=== PATIENT | female | born 1935 | race Native Hawaiian/Other Pacific Islander ===

== ENCOUNTER 2020-04-18 20:30 | IRF | payer MEDICARE, OTHER, SELFPAY ==
--- NOTE | ~2020-04-18 | XR_ITS ---
EXAMINATION: XR ankle LT min 3V DATE: 04/27/2020 10:38 INDICATION: Medial left ankle pain TECHNIQUE: Anteroposterior, oblique, mortise, and lateral views of the left ankle were obtained. COMPARISON: None. FINDINGS: Alignment is normal. No fracture. Joint spaces are well maintained. No ankle joint effusion. Modera te-sized plantar calcaneal spur. The soft tissues are unremarkable. IMPRESSION: 1. No osseous abnormality or left ankle joint effusion. Reviewed, dictated and finalized at location A.
[2020-04-18 20:30] VITALS: BP 144/77; PULSE 98; RESP 20; TEMP 36.5; O2SAT 95; BMI 26.8
--- NOTE | 2020-04-18 21:27 | ADMGEN ---
This patient, Jennifer Smith, was admitted to [facility] Room 223-01 at 20:30. Patient/family oriented to hospital policies and general routines including ID bracelet, bed and alarms, visiting hours, pain management, procedures, bathroom and other care routines, personal items, smoking policy, room service/diet, and visiting hours. Valuables list has been completed. Information on how to activate the Rapid Response Team has been discussed. Patient/Family are encouraged to report perceived risks to care and to ask questions if they do not understand what they are told or what they should do.
[2020-04-18 22:23] VITALS: PULSE 110; O2SAT 94
[2020-04-18 23:03] VITALS: PULSE 99; RESP 14; O2SAT 93
[2020-04-19] VITALS (16 sets, daily range): BP systolic 113–130; BP diastolic 70–82; PULSE 82–112; RESP 12–20; TEMP 36.3–36.7; O2SAT 93–99; BMI 26.8
[2020-04-19 05:12] LABS: Basophils Absolute Auto 0.1 K/mm3 (0.0-0.1); Basophils Percent Auto 1.8 % (0.2-1.2); Eosinophils Absolute Auto 0.1 K/mm3 (0-0.3); Eosinophils Percent Auto 2.3 % (0-4.4); Hematocrit 44.1 % (37.0-47.0); Hemoglobin 13.8 g/dL (12.0-15.0); Immature Granulocyte Absolute 0.02 K/mm3 (0.00-0.031); Immature Granulocyte Percent A 0.4 % (0-0.5); Lymphocytes Absolute Auto 1.64 K/mm3 (0.9-3.2); Lymphocytes Percent Auto 29.1 % (18.3-44.2); Mean Corpuscular HGB Conc 31.3 g/dl (32-36); Mean Corpuscular Hemoglobin 25.8 pg (26-34); Mean Corpuscular Volume 82.6 fl (80-100); Mean Platelet Volume 11.3 fl (7.4-10.4); Monocytes Absolute Auto 0.5 K/mm3 (0.1-0.6); Monocytes Percent Auto 8.9 % (2.6-8.5); Neutrophils Absolute Auto 3.3 K/mm3 (1.3-6.7); Neutrophils Percent Auto 57.5 % (45.5-73.1); Platelet Count Result 217 k/mm3 (150-375); Red Blood Count 5.34 M/mm3 (4.2-5.4); Red Cell Distribution Width 17.6 % (11.5-14.5); White Blood Count 5.6 K/mm3 (4.5-10.0)
[2020-04-19 05:26] LABS: Blood Urea Nitrogen 18 mg/dL (7-17); Calcium 8.8 mg/dL (8.4-10.2); Carbon Dioxide 26 mmol/L (22-30); Chloride 106 mmol/L (98-107); Estimated CRCL calculation 35 ml/min; Estimated Glomerular Filt Rate 53; Glucose 94 mg/dL (65-105); Potassium 3.8 mmol/L (3.4-5.0); Sodium 138 mmol/L (137-145)
[2020-04-19] MEDS: LEVOTHYROXINE SODIUM 88 MCG TABLET PO (06:36)
[2020-04-19] MEDS: ACIDOPHILUS PACKET 1 PKT PACKET PO ×3 (08:16→17:12)
[2020-04-19] MEDS: busPIRone HCL 10 MG TABLET PO ×3 (08:16→17:12)
[2020-04-19] MEDS: DULoxetine HCL 60 MG CAPSULE.DR PO (08:16)
[2020-04-19] MEDS: TRIAMCINOLONE ACET 0.5% CREAM 15 GM TUBE 1 APPLIC TOPICAL ×3 (08:16→17:12)
[2020-04-19] MEDS: LIDOCAINE 5% PATCH 1 PATCH TOPICAL (08:16)
[2020-04-19] MEDS: POTASSIUM CHLORIDE 10 MEQ TABLET.ER PO (08:16)
[2020-04-19] MEDS: polyethylene glycoL 3350 17 GM POWD.PACK PO (08:16)
[2020-04-19] MEDS: FUROSEMIDE 20 MG TABLET PO (08:16)
[2020-04-19] MEDS: SENNOSIDES 8.6 MG TABLET 17.2 MG PO (08:16)
[2020-04-19] MEDS: METOPROLOL TARTRATE 50 MG TAB 100 MG PO ×2 (08:17→20:47)
[2020-04-19] MEDS: APIXABAN 5 MG TABLET PO ×2 (08:17→17:12)
[2020-04-19] MEDS: GENTAMICIN SULFATE 0.3% OP SOL 5 ML BTL 1 DROP EACH EYE (08:17)
[2020-04-19] MEDS: PANTOPRAZOLE 40 MG TABLET PO (08:17)
[2020-04-19] MEDS: CARBIDOPA 25 MG TABLET 200 MG PO (08:19)
[2020-04-19] MEDS: CARBIDOPA/LEVODOPA 12.5/50 MG TABLET 1 TABLET PO (08:19)
[2020-04-19] MEDS: CARBIDOPA/LEVODOPA 25/100 MG TABLET 2 TABLET PO ×4 (08:20→20:51)
[2020-04-19] MEDS: PSYLLIUM POWDER PACKET 1 PACKET PO (08:21)
[2020-04-19] MEDS: IPRATROPIUM BR 0.02% INH SOLN 0.5 MG/2.5 ML VIAL INHALATION ×3 (09:12→22:04)
[2020-04-19] MEDS: ALBUTEROL SULFATE NEB 2.5 MG/0.5 ML INH INHALATION ×3 (09:12→22:04)
--- NOTE | 2020-04-19 11:30 | WPDREHABHP ---
H&P: HPI History of Present Illness Chief complaint: C5/T1 Fracture Narrative: Jennifer Smith is a 84 year old femaleHISTORY OF PRESENT ILLNESS: The patient's primary rehab impairment category orthopedic/other The etiologic diagnosis is C5/T1 fracture. I saw this patient [id number] on March 20, 2020 at 11:00 a.m. The patient is a 84-year-old right-handed woman that was transferred to [facility] from [facility] on April 14 after a ground level fall in her apartment. She has a prior medical history of atrial fibrillation and is on Eliquis at baseline. Chest x-ray demonstrated mild left basilar atelectasis and mild pulmonary vascular congestion. CT of the head showed a chronic left frontotemporal subdural hygroma and underlying transcortical encephalomalacia. CT of this month spine demonstrated T1 compression fracture with underlying 25% height loss and no retropulsion. L4 compression fracture with 20% or 25 person height loss and no retropulsion, and minimally displaced C5 compression fracture with no retropulsion. CT of the chest abdomen pelvis showed a fracture of the T1 superior endplate L4 superior endplate without interval showing osseous contents. There is a splenic subcapsular 6 millimeter fluid collection age indeterminate though an acute grade 1 splenic injury cannot be excluded. Small bilateral pleural effusion with associated mild atelectasis. Neurosurgery spine was consulted and opted for non operative management with cervical collar and LSO brace. Cervical collar to be worn when out of bed or when the head of the bed is higher than 30?. LSO brace to be worn for comfort and does not need to be worn in bed. Activities as tolerated. On April 16, 2020 the patient reported chest pain and physical examination the patient was tachycardic and hypertensive. Cardiology was consulted the patient's metoprolol was increased to 75 milligram b.i.d. and April 17 the patient had an episode of atrial flutter Cardiology suggested reaching out to the pacemaker manage fracture for interrogation. Pacemaker patient representative reported the patient follows closely with her cardiology/pacemaker clinic every regularly and her last transmission was March 14, 2020 the transmission mimic her current clinical course confirming the patient is at baseline from a cardiology standpoint and will just require adjustments to her medications for appropriate rate controlled. The patient will be discharged to rehab on Eliquis 5 milligram b.i.d. this was a home medication and she will remain on it after rehab as well the patient has not traveled outside the [place] or had contact with someone who is ill that has traveled outside the [place] in the past 21 days. The patient has not traveled to an area of the [place] that is experiencing known transmission of the Coronavirus and has not had close personal contact with anyone that has. The patient does not have a fever. The patient does not have any new lower respiratory illness symptoms. Her oxygen during the day and BiPAP at night is baseline Therapy was initiated at the acute care facility and the patient transferred to us from [facility] on FALLS OR SURGERIES: The patient has had no major surgeries in the 100 days prior to admission. They had falls in the past year. They had falls with injury in the past year. PAST MEDICAL HISTORY: atrial fibrillation stroke and arthritis and Parkinson's disease PAST SURGICAL HISTORY: cholecystectomy tendon surgery pacemaker placement gallbladder removal and exploratory surgery of the abdomen. SOCIAL HISTORY: Cholecystectomy tendon surgery pacemaker placement gallbladder stone removal and exploratory laparotomy of the abdomen. Patient lives in an assisted living community apartment with the level and tree and an elevator. She was independent with bathing and dressing and used a wheeled walker to go to all meals and activities independently.
--- NOTE | 2020-04-19 15:37 | RPD ---
INDIVIDUALIZED PLAN OF CARE FOR Jennifer Smith Brief Synthesis of Pre-Admission Screen, Post-Admission Evaluation and Therapy Evaluations: The patient presents to rehab with C5, T1 fracture and splenic laceration in the setting of Parkinson's disease. Comorbidities include arthritis, small bilateral pleural effusions, s/p ground level fall, grade 1 splenic injury, blepharospasm, s/p cardiac pacemaker, pneumoconiosis due to asbestos and other mineral fibers, HTN, hypothyroidism, Parkinson's disease, anxiety, adjustment disorder with mixed disturbance of emotions, laceration of the spleen, closed wedge compression fracture of the first thoracic vertebra, and closed non-displaced fracture of the 5th cervical vertebra. The patient?s needs will be best met in an intensive program vs. at a lower level of care. The patient requires physician services for medical oversight, management of medical complications in setting of present comorbidities, and pain management. The patient requires nursing services for DVT prophylactics, infection protection, medication management and education, pressure relief, and wound care. Deficits include:ADLs, Balance, Endurance, Family Training/Education, Mobility, Pain Management, ROM, Safety, Strength, and Transfers. Patient Coordinator/Case Management for: Discharge Planning and Patient/Family Counseling Physical Therapy: 5 days per week for 60 minutes. Treatments may include: Therapeutic Exercise, Gait Training, Neuromuscular Re-education, Transfer Training, Community Reintegration, Bed Mobility, Patient/Family Education, Wheelchair Mobility Group Therapy/Concurrent Therapy Rationales: -Improve attention span during functional activities in a distracted environment. -Enhance problem solving and/or adequate judgment skills during functional activities in a distracted environment. -Promote increased safety awareness in a distracted environment to reduce fall risk with functional tasks, transfers, and ambulation to allow a more safe, self-sufficient return to the home environment. -Improve dynamic balance skills to promote safety and independence with functional activities in a distracted environment for maximum gain. Occupational Therapy: 5 days per week for 60 minutes. Treatments may include: Therapeutic Exercise, Therapeutic Activity, Cognitive Training, Self-Care Transfer Training, Community Reintegration, Home Management, Patient/Family Education, Wheelchair Mobility Training, Energy Conservation Training Group Therapy/Concurrent Therapy Rationales: -Allow therapist to observe and teach generalization and carry-over of skills learned in individual therapy. -Enhance problem solving and sequencing skills during therapeutic activities in a distracted environment. -Promote increased safety awareness in a realistic setting to reduce fall risk with functional tasks due to visual and verbal distractions. -Increase functional level with ADLs, ADL transfers and use of adaptive equipment through therapeutic activities with others while promoting safety to allow a more safe, self-sufficient return home. Speech Therapy: 5 days per week for 60 minutes. Treatments may include: Dysphasia Therapy, Speech/Language/Communication Therapy, Cognitive Training, Patient/Family Education Group Therapy/Concurrent Therapy - Rationale: -Allow therapist to observe and teach generalization and carry-over of skills learned in individual therapy. -Improve comprehension skills with complex or abstract ideas through discussion in a realistic setting. -Enhance problem solving skills with complex issues during activities in a distracted environment. -Promote increased memory skills and concentration in a distracted environment for a safe transition home. -Improve attention and focus with language/communication skills in a realistic and supportive therapeutic setting. -Allow for practice of expression of basic needs and ideas through functional activities with others. Medical
[2020-04-19] MEDS: CARBIDOPA 25 MG TABLET PO ×2 (17:12→20:51)
[2020-04-19] MEDS: MIRTAZAPINE 15 MG TABLET PO (20:48)
[2020-04-19] MEDS: MONTELUKAST SODIUM 10 MG TABLET PO (20:50)
[2020-04-20] VITALS (14 sets, daily range): BP systolic 106–133; BP diastolic 69–83; PULSE 46–100; RESP 16–20; TEMP 35.6–36.3; O2SAT 95–99
[2020-04-20] MEDS: ALBUTEROL SULFATE NEB 2.5 MG/0.5 ML INH INHALATION ×4 (02:50→19:34)
[2020-04-20] MEDS: IPRATROPIUM BR 0.02% INH SOLN 0.5 MG/2.5 ML VIAL INHALATION ×4 (02:50→19:34)
[2020-04-20] MEDS: LEVOTHYROXINE SODIUM 75 MCG TABLET PO (06:00)
[2020-04-20] MEDS: CARBIDOPA/LEVODOPA 12.5/50 MG TABLET 1 TABLET PO (07:53)
[2020-04-20] MEDS: CARBIDOPA 25 MG TABLET 200 MG PO (07:53)
[2020-04-20] MEDS: ACIDOPHILUS PACKET 1 PKT PACKET PO ×3 (07:54→17:50)
[2020-04-20] MEDS: APIXABAN 5 MG TABLET PO ×2 (07:54→17:50)
[2020-04-20] MEDS: POTASSIUM CHLORIDE 10 MEQ TABLET.ER PO (07:54)
[2020-04-20] MEDS: CARBIDOPA/LEVODOPA 25/100 MG TABLET 2 TABLET PO ×4 (07:54→20:40)
[2020-04-20] MEDS: busPIRone HCL 10 MG TABLET PO ×3 (07:55→17:50)
[2020-04-20] MEDS: FUROSEMIDE 20 MG TABLET PO (07:55)
[2020-04-20] MEDS: DULoxetine HCL 60 MG CAPSULE.DR PO (07:55)
[2020-04-20] MEDS: GENTAMICIN SULFATE 0.3% OP SOL 5 ML BTL 1 DROP EACH EYE (07:56)
[2020-04-20] MEDS: PANTOPRAZOLE 40 MG TABLET PO (07:56)
[2020-04-20] MEDS: LIDOCAINE 5% PATCH 1 PATCH TOPICAL (07:56)
[2020-04-20] MEDS: polyethylene glycoL 3350 17 GM POWD.PACK PO (07:56)
[2020-04-20] MEDS: SENNOSIDES 8.6 MG TABLET 17.2 MG PO (07:57)
[2020-04-20] MEDS: PSYLLIUM POWDER PACKET 1 PACKET PO (07:57)
[2020-04-20] MEDS: METOPROLOL TARTRATE 50 MG TAB 100 MG PO ×2 (08:01→20:41)
--- NOTE | 2020-04-20 12:10 | WPDNEURORHBP ---
Subjective Date/time seen: 04/20/20 12:10 Interval history: this pleasant 84-year-old woman is here because of C5 and T1 fracture and she is in neck brace and TLSO because of multiple fractures she has underlying history of having had stroke and her baseline is with aphasia and [id number] right-sided weakness she is doing well denies any headache nausea vomiting chest pain shortness of breath fever chills sore throat Review of Systems Review of Systems: All systems reviewed & are unremarkable except as noted in HPI and below Functional Status Ambulation Ability Ability to Ambulate 10 Feet: Contact Guard Ability to Ambulate 50 Feet With 2 Turns: Contact Guard Ability to Ambulate 150 Feet: Contact Guard Ambulation Assistive Devices: Walker, Wheeled Transfers Ability Ability to Transfer In/Out of Chair: Standby Assistance Exam Const: General: comfortable and no acute distress HENMT: General nose exam: Normal nares present Mouth: Yes moist mucous membranes Eyes: General: appearance normal, both eyes and all related structures Neck: Neck: supple and no JVD Resp: Effort & Inspection: normal respiratory effort Auscultation: clear to auscultation bilaterally Cardio: Rate: regular rate Rhythm: regular rhythm GI: GI Palp: Yes Soft to palpation Auscultation: normal bowel sounds Skin: General skin exam: normal color and no rashes or lesions noted Neuro: Other: patient has aphasia at baseline however she is communicative and able to talk and understand fairly well right-sided hemiparesis is stable overall physical status is stable but she has weakness affecting the left side most likely related to multiple fracture she has sustained and we are working on Extrem: General: normal to inspection Psych: Mental Status: mental status grossly normal Objective Data Vital Signs Vital Signs: Vital Signs - 24 hr 04/19/20 14:00 04/19/20 14:37 04/19/20 20:47 Temperature 36.6 C Pulse Rate 87 88 88 Respiratory Rate 16 20 Blood Pressure 116/70 Pulse Oximetry 96 04/19/20 22:00 04/19/20 22:04 04/19/20 22:08 Temperature 36.7 C Pulse Rate 88 84 Respiratory Rate 18 20 Blood Pressure 130/82 Pulse Oximetry 97 93 04/19/20 22:17 04/19/20 22:27 04/20/20 02:51 Temperature Pulse Rate 108 H 108 H 74 Respiratory Rate 20 12 20 Blood Pressure Pulse Oximetry 93 04/20/20 02:57 04/20/20 06:00 04/20/20 08:01 Temperature 36.3 C L Pulse Rate 86 54 L 54 L Respiratory Rate 20 16 Blood Pressure 133/83 Pulse Oximetry 95 04/20/20 08:18 04/20/20 08:30 Temperature Pulse Rate 100 81 Respiratory Rate 18 18 Blood Pressure Pulse Oximetry 96 Intake/Output Intake/Output: Intake & Output 04/17/20 04/18/20 04/19/20 04/20/20 23:59 23:59 23:59 23:59 Intake Total 460 240 Balance 460 240 Meds/Results Medications: Active Medications Generic Name Dose Route Start Last Admin Trade Name Freq PRN Reason Stop Dose Admin Acetaminophen 650 mg 04/19/20 03:20 Tylenol Tablet PO Q6H PRN Pain Rated 1-3 Albuterol 2.5 mg 04/19/20 08:00 04/20/20 08:16 Albuterol Sulf Neb 2.5mg/0.5ml INHALATION 2.5 mg Q6HRT HILTON Administration Apixaban 5 mg 04/19/20 09:00 04/20/20 07:54 Eliquis PO 5 mg BID HILTON Administration Buspirone HCl 10 mg 04/19/20 09:00 04/20/20 07:55 Buspar PO 10 mg TID HILTON Administration Calcium Citrate 1 tablet 04/19/20 09:00 04/20/20 07:55 Calcitrate + Vit D Caplet PO 05/19/20 09:01 1 tablet BID HILTON Administration Carbidopa 25 mg 04/19/20 16:00 04/19/20 20:51 Lodosyn PO 25 mg 1600,2100 HILTON Administration Carbidopa 200 mg 04/19/20 08:00 04/20/20 07:53 Lodosyn PO 200 mg DAILY@0800 HILTON Administration Carbidopa/Levodopa 2 tablet 04/19/20 08:00 04/20/20 07:54 Sinemet 25/100 Mg PO 2 tablet 0800,1200,1600,2100 HILTON Administration Carbidopa/Levodopa 1 tablet 04/19/20 08:00 04/20/20 07:
[2020-04-20] MEDS: LOTEPREDNOL ETABONATE 0.2% OPH 5 ML SUSP 1 DROP EACH EYE ×4 (12:43→20:41)
[2020-04-20] MEDS: TRIAMCINOLONE ACET 0.5% CREAM 15 GM TUBE 1 APPLIC TOPICAL ×3 (12:50→18:43)
[2020-04-20] MEDS: CARBIDOPA 25 MG TABLET PO ×2 (17:49→20:41)
[2020-04-20] MEDS: MONTELUKAST SODIUM 10 MG TABLET PO (20:41)
[2020-04-20] MEDS: MIRTAZAPINE 15 MG TABLET PO (20:41)
[2020-04-21] VITALS (15 sets, daily range): BP systolic 112–132; BP diastolic 74–98; PULSE 51–113; RESP 16–20; TEMP 35.3–36.4; O2SAT 93–97
[2020-04-21] MEDS: ALBUTEROL SULFATE NEB 2.5 MG/0.5 ML INH INHALATION ×4 (01:18→19:38)
[2020-04-21] MEDS: IPRATROPIUM BR 0.02% INH SOLN 0.5 MG/2.5 ML VIAL INHALATION ×4 (01:18→19:39)
[2020-04-21] MEDS: LEVOTHYROXINE SODIUM 88 MCG TABLET PO (05:24)
[2020-04-21] MEDS: CARBIDOPA/LEVODOPA 25/100 MG TABLET 2 TABLET PO ×4 (09:00→20:43)
[2020-04-21] MEDS: busPIRone HCL 10 MG TABLET PO ×3 (09:00→17:26)
[2020-04-21] MEDS: METOPROLOL TARTRATE 50 MG TAB 100 MG PO ×2 (09:01→20:44)
[2020-04-21] MEDS: polyethylene glycoL 3350 17 GM POWD.PACK PO (09:02)
[2020-04-21] MEDS: PANTOPRAZOLE 40 MG TABLET PO (09:02)
[2020-04-21] MEDS: ACIDOPHILUS PACKET 1 PKT PACKET PO ×2 (09:03→12:13)
[2020-04-21] MEDS: PSYLLIUM POWDER PACKET 1 PACKET PO (09:05)
[2020-04-21] MEDS: SENNOSIDES 8.6 MG TABLET 17.2 MG PO (09:06)
[2020-04-21] MEDS: TRIAMCINOLONE ACET 0.5% CREAM 15 GM TUBE 1 APPLIC TOPICAL ×3 (09:07→17:26)
[2020-04-21] MEDS: LOTEPREDNOL ETABONATE 0.2% OPH 5 ML SUSP 1 DROP EACH EYE ×4 (09:07→20:43)
[2020-04-21] MEDS: LIDOCAINE 5% PATCH 1 PATCH TOPICAL (09:08)
[2020-04-21] MEDS: FUROSEMIDE 20 MG TABLET PO (09:11)
[2020-04-21] MEDS: POTASSIUM CHLORIDE 10 MEQ TABLET.ER PO (09:12)
[2020-04-21] MEDS: APIXABAN 5 MG TABLET PO ×2 (09:12→17:25)
[2020-04-21] MEDS: CARBIDOPA/LEVODOPA 12.5/50 MG TABLET 1 TABLET PO (09:12)
[2020-04-21] MEDS: CARBIDOPA 25 MG TABLET 200 MG PO (09:14)
[2020-04-21] MEDS: DULoxetine HCL 60 MG CAPSULE.DR PO (09:15)
[2020-04-21] MEDS: GENTAMICIN SULFATE 0.3% OP SOL 5 ML BTL 1 DROP EACH EYE (09:15)
--- NOTE | 2020-04-21 12:38 | WPDNEURORHBP ---
Subjective Date/time seen: 04/21/20 12:38 Interval history: this is a follow-up note for April 21, 2020 the patient is here for the acute rehab after suffering from C5 /T1 fracture and also fracture of the T9 with underlying Parkinson's disease she is wearing hard cervical collar and also TLSO doing fairly well Parkinson's disease is stable she is walking fairly good her is speech defect and mild right-sided hemiparesis predating the previous the present injury she denies any headache nausea vomiting chest pain shortness of breath fever chills sore throat Review of Systems Review of Systems: All systems reviewed & are unremarkable except as noted in HPI and below Functional Status Ambulation Ability Ability to Ambulate 10 Feet: Contact Guard Ability to Ambulate 50 Feet With 2 Turns: Contact Guard Ability to Ambulate 150 Feet: Contact Guard Ambulation Assistive Devices: Walker, Wheeled Transfers Ability Ability to Transfer In/Out of Chair: Standby Assistance Exam Const: General: comfortable and no acute distress HENMT: General nose exam: Normal nares present Mouth: Yes moist mucous membranes Eyes: General: appearance normal, both eyes and all related structures Neck: Neck: supple and no JVD Other: patient is wearing a hard cervical collar and also TLSO Resp: Effort & Inspection: normal respiratory effort Auscultation: clear to auscultation bilaterally Cardio: Rate: regular rate Rhythm: regular rhythm GI: GI Palp: Yes Soft to palpation Auscultation: normal bowel sounds Skin: General skin exam: normal color and no rashes or lesions noted Neuro: Other: patient is awake and alert well oriented able to follow all commands fairly well her speech defect if anything is improved with right-sided weakness has improved she is walking with the assistance but still needs assistance with the activities of daily Extrem: General: normal to inspection Psych: Mental Status: mental status grossly normal Objective Data Vital Signs Vital Signs: Vital Signs - 24 hr 04/21/20 13:45 04/21/20 13:55 04/21/20 14:23 Temperature 36.4 C Pulse Rate 63 65 62 Respiratory Rate 16 16 20 Blood Pressure 132/74 Pulse Oximetry 97 04/21/20 19:39 04/21/20 19:50 04/21/20 20:44 Temperature Pulse Rate 57 L 59 L 60 Respiratory Rate 16 16 Blood Pressure Pulse Oximetry 96 04/21/20 21:44 04/22/20 01:50 04/22/20 01:58 Temperature 35.5 C L Pulse Rate 73 57 L 62 Respiratory Rate 18 16 16 Blood Pressure 112/75 Pulse Oximetry 97 97 04/22/20 06:00 04/22/20 09:02 04/22/20 09:18 Temperature 35.7 C L Pulse Rate 68 78 74 Respiratory Rate 18 20 Blood Pressure 108/67 Pulse Oximetry 96 Intake/Output Intake/Output: Intake & Output 04/19/20 04/20/20 04/21/20 04/22/20 23:59 23:59 23:59 23:59 Intake Total 460 720 720 240 Balance 460 720 720 240 Meds/Results Medications: Active Medications Generic Name Dose Route Start Last Admin Trade Name Freq PRN Reason Stop Dose Admin Acetaminophen 650 mg 04/19/20 03:20 Tylenol Tablet PO Q6H PRN Pain Rated 1-3 Albuterol 2.5 mg 04/19/20 08:00 04/22/20 09:18 Albuterol Sulf Neb 2.5mg/0.5ml INHALATION 2.5 mg Q6HRT HILTON Administration Apixaban 5 mg 04/19/20 09:00 04/22/20 09:02 Eliquis PO 5 mg BID HILTON Administration Buspirone HCl 10 mg 04/19/20 09:00 04/22/20 09:02 Buspar PO 10 mg TID HILTON Administration Calcium Citrate 1 tablet 04/19/20 09:00 04/22/20 09:02 Calcitrate + Vit D Caplet PO 05/19/20 09:01 1 tablet BID HILTON Administration Carbidopa 25 mg 04/19/20 16:00 04/21/20 20:43 Lodosyn PO 25 mg 1600,2100 HILTON Administration Carbidopa 200 mg 04/19/20 08:00 04/22/20 08:59 Lodosyn PO 200 mg DAILY@0800 HILTON Administration Carbidopa/Levodopa 2 tablet 04/19/20 08:00 04/22/20 09:00 Sinemet 25/100 Mg PO 2 tablet 0800,1200,1600,2100 HILTON Administration Carbidopa/Levodopa 1
[2020-04-21] MEDS: CARBIDOPA 25 MG TABLET PO ×2 (17:25→20:43)
[2020-04-21] MEDS: MONTELUKAST SODIUM 10 MG TABLET PO (20:43)
[2020-04-21] MEDS: MIRTAZAPINE 15 MG TABLET PO (20:43)
[2020-04-22] VITALS (10 sets, daily range): BP systolic 108–127; BP diastolic 67–96; PULSE 57–118; RESP 16–20; TEMP 35.7–36.6; O2SAT 91–97
[2020-04-22] MEDS: ALBUTEROL SULFATE NEB 2.5 MG/0.5 ML INH INHALATION ×3 (01:50→19:32)
[2020-04-22] MEDS: IPRATROPIUM BR 0.02% INH SOLN 0.5 MG/2.5 ML VIAL INHALATION ×3 (01:50→19:32)
[2020-04-22] MEDS: LEVOTHYROXINE SODIUM 75 MCG TABLET PO (05:45)
[2020-04-22] MEDS: CARBIDOPA 25 MG TABLET 200 MG PO (08:59)
[2020-04-22] MEDS: CARBIDOPA/LEVODOPA 12.5/50 MG TABLET 1 TABLET PO (09:00)
[2020-04-22] MEDS: CARBIDOPA/LEVODOPA 25/100 MG TABLET 2 TABLET PO ×4 (09:00→21:05)
[2020-04-22] MEDS: POTASSIUM CHLORIDE 10 MEQ TABLET.ER PO (09:01)
[2020-04-22] MEDS: DULoxetine HCL 60 MG CAPSULE.DR PO (09:02)
[2020-04-22] MEDS: busPIRone HCL 10 MG TABLET PO ×3 (09:02→21:05)
[2020-04-22] MEDS: LOTEPREDNOL ETABONATE 0.2% OPH 5 ML SUSP 1 DROP EACH EYE ×4 (09:02→21:04)
[2020-04-22] MEDS: APIXABAN 5 MG TABLET PO ×2 (09:02→17:27)
[2020-04-22] MEDS: FUROSEMIDE 20 MG TABLET PO (09:02)
[2020-04-22] MEDS: METOPROLOL TARTRATE 50 MG TAB 100 MG PO (09:02)
[2020-04-22] MEDS: PANTOPRAZOLE 40 MG TABLET PO (09:03)
[2020-04-22] MEDS: polyethylene glycoL 3350 17 GM POWD.PACK PO (09:03)
[2020-04-22] MEDS: PSYLLIUM POWDER PACKET 1 PACKET PO (09:03)
[2020-04-22] MEDS: SENNOSIDES 8.6 MG TABLET 17.2 MG PO (09:04)
[2020-04-22] MEDS: LIDOCAINE 5% PATCH 1 PATCH TOPICAL (09:04)
[2020-04-22] MEDS: TRIAMCINOLONE ACET 0.5% CREAM 15 GM TUBE 1 APPLIC TOPICAL ×3 (09:04→17:30)
[2020-04-22] MEDS: GENTAMICIN SULFATE 0.3% OP SOL 5 ML BTL 1 DROP EACH EYE (09:14)
[2020-04-22] MEDS: ACIDOPHILUS/BULGARICUS CHEWABLE TABLET 1 TABLET PO (10:04)
--- NOTE | 2020-04-22 13:06 | PCDIET ---
Nutrition Follow-Up Complete: Nutrition Diagnosis: Predicted suboptimal oral intake related to fracture as evidenced by intake of 30% x 1. Nutrition Goal: Patient to consume 50% of meals and supplements Goal met. Intakes 75-100% of most meals now. Appetite fair. No c/o. Recommend continuing regular diet with Ensure Compact BID at this time. Last recorded weight is 74.3 kg. Recommend obtaining new weight. Bowel Motility: Last reported BM on 04/19/20. Labs Reviewed: No new labs available. Meds Noted: Albuterol, Lasix, Calcium Citrate, Atrovent, Carbidopa, Lactinex, Sinemet, Remeron, Protonix, Miralax, KCl, Metamucil, Senna Additional Notes: No documented skin breakdown. Will continue to monitor with same goal. Nutrition Monitoring and Evaluation: Follow up in 5 days.
--- NOTE | 2020-04-22 13:50 | WPDNEURORHBP ---
Subjective Date/time seen: 04/22/20 13:50 Interval history: this 84-year-old woman is here because of C5-T1 fractures and also fractures in the thoracic spine she is wearing a hard cervical collar and also TLSO she is complaining of little bit itching by and cervical collar and we will address that overall she is improving Parkinson's disease is stable She denies any headache nausea vomiting chest pain shortness of breath fever chills sore throat Review of Systems Review of Systems: All systems reviewed & are unremarkable except as noted in HPI and below Functional Status Ambulation Ability Ability to Ambulate 10 Feet: Standby Assistance Ability to Ambulate 50 Feet With 2 Turns: Standby Assistance Ability to Ambulate 150 Feet: Standby Assistance Ambulation Assistive Devices: Walker, Wheeled Transfers Ability Ability to Transfer In/Out of Chair: Standby Assistance Exam Const: General: comfortable and no acute distress HENMT: General nose exam: Normal nares present Mouth: Yes moist mucous membranes Eyes: General: appearance normal, both eyes and all related structures Neck: Neck: supple and no JVD Resp: Effort & Inspection: normal respiratory effort Auscultation: clear to auscultation bilaterally Cardio: Rate: regular rate Rhythm: regular rhythm GI: GI Palp: Yes Soft to palpation Auscultation: normal bowel sounds Skin: General skin exam: normal color and no rashes or lesions noted Neuro: Other: patient is awake alert well oriented Parkinson's disease is stable she does have the fixed deficit of speech defect and right-sided weakness from the previous stroke several years ago overall her strength in general is improving Extrem: General: normal to inspection Psych: Mental Status: mental status grossly normal Objective Data Vital Signs Vital Signs: Vital Signs - 24 hr 04/22/20 14:00 04/22/20 19:35 04/22/20 19:43 Temperature 36.2 C L Pulse Rate 87 118 H 95 Respiratory Rate 20 18 20 Blood Pressure 127/77 Pulse Oximetry 95 93 04/22/20 22:00 04/22/20 22:10 04/23/20 01:34 Temperature 36.6 C Pulse Rate 88 92 86 Respiratory Rate 16 20 Blood Pressure 124/96 H Pulse Oximetry 94 91 96 04/23/20 01:37 04/23/20 06:00 04/23/20 08:22 Temperature 36.5 C Pulse Rate 66 100 101 H Respiratory Rate 20 18 18 Blood Pressure 133/89 Pulse Oximetry 96 94 04/23/20 08:31 04/23/20 08:32 Temperature Pulse Rate 100 96 Respiratory Rate 18 Blood Pressure Pulse Oximetry Intake/Output Intake/Output: Intake & Output 04/20/20 04/21/20 04/22/20 04/23/20 23:59 23:59 23:59 23:59 Intake Total 720 720 720 240 Balance 720 720 720 240 Meds/Results Medications: Active Medications Generic Name Dose Route Start Last Admin Trade Name Freq PRN Reason Stop Dose Admin Acetaminophen 650 mg 04/19/20 03:20 Tylenol Tablet PO Q6H PRN Pain Rated 1-3 Albuterol 2.5 mg 04/23/20 12:32 Albuterol Sulf Neb 2.5mg/0.5ml INHALATION Q6HRT PRN Shortness Of Breath Or Wheezing Apixaban 5 mg 04/19/20 09:00 04/23/20 08:30 Eliquis PO 5 mg BID HILTON Administration Buspirone HCl 10 mg 04/22/20 21:00 04/23/20 13:23 Buspar PO 10 mg 0630,1200,2100 HILTON Administration Calcium Citrate 1 tablet 04/19/20 09:00 04/23/20 08:30 Calcitrate + Vit D Caplet PO 05/19/20 09:01 1 tablet BID HILTON Administration Carbidopa 25 mg 04/22/20 17:00 04/22/20 17:29 Lodosyn PO 25 mg 1200,1700 HILTON Administration Carbidopa 200 mg 04/23/20 06:30 04/23/20 06:28 Lodosyn PO 200 mg DAILY@0630 HILTON Administration Carbidopa/Levodopa 2 tablet 04/19/20 08:00 04/23/20 13:22 Sinemet 25/100 Mg PO 2 tablet 0800,1200,1600,2100 HILTON Administration Carbidopa/Levodopa 1 tablet 04/19/20 08:00 04/23/20 08:29 Sinemet 12.5/50 Mg PO 1 tablet DAILY@0800 HILTON Administration Duloxetine HCl 60 mg 04/19/20 09:00 04/23/20 08:30 Cymbalta PO 60 mg D
[2020-04-22] MEDS: CARBIDOPA 25 MG TABLET PO (17:29)
[2020-04-22] MEDS: MIRTAZAPINE 15 MG TABLET PO (21:05)
[2020-04-22] MEDS: MONTELUKAST SODIUM 10 MG TABLET PO (21:05)
[2020-04-23] VITALS (10 sets, daily range): BP systolic 133–141; BP diastolic 76–89; PULSE 66–101; RESP 18–20; TEMP 36.4–37.1; O2SAT 94–97
[2020-04-23] MEDS: ALBUTEROL SULFATE NEB 2.5 MG/0.5 ML INH INHALATION ×2 (01:32→08:22)
[2020-04-23] MEDS: IPRATROPIUM BR 0.02% INH SOLN 0.5 MG/2.5 ML VIAL INHALATION ×2 (01:32→08:22)
[2020-04-23] MEDS: busPIRone HCL 10 MG TABLET PO ×3 (06:28→21:07)
[2020-04-23] MEDS: LEVOTHYROXINE SODIUM 88 MCG TABLET PO (06:28)
[2020-04-23] MEDS: POTASSIUM CHLORIDE 10 MEQ TABLET.ER PO (06:28)
[2020-04-23] MEDS: CARBIDOPA 25 MG TABLET 200 MG PO (06:28)
[2020-04-23] MEDS: PANTOPRAZOLE 40 MG TABLET PO (06:29)
[2020-04-23] MEDS: FUROSEMIDE 20 MG TABLET PO (06:29)
[2020-04-23] MEDS: CARBIDOPA/LEVODOPA 12.5/50 MG TABLET 1 TABLET PO (08:29)
[2020-04-23] MEDS: CARBIDOPA/LEVODOPA 25/100 MG TABLET 2 TABLET PO ×4 (08:29→21:08)
[2020-04-23] MEDS: LIDOCAINE 5% PATCH 1 PATCH TOPICAL (08:30)
[2020-04-23] MEDS: DULoxetine HCL 60 MG CAPSULE.DR PO (08:30)
[2020-04-23] MEDS: APIXABAN 5 MG TABLET PO ×2 (08:30→16:50)
[2020-04-23] MEDS: GENTAMICIN SULFATE 0.3% OP SOL 5 ML BTL 1 DROP EACH EYE (08:30)
[2020-04-23] MEDS: LOTEPREDNOL ETABONATE 0.2% OPH 5 ML SUSP 1 DROP EACH EYE ×4 (08:30→21:09)
[2020-04-23] MEDS: METOPROLOL TARTRATE 50 MG TAB 100 MG PO ×2 (08:31→21:13)
[2020-04-23] MEDS: polyethylene glycoL 3350 17 GM POWD.PACK PO (08:32)
[2020-04-23] MEDS: SENNOSIDES 8.6 MG TABLET 17.2 MG PO (08:32)
[2020-04-23] MEDS: PSYLLIUM POWDER PACKET 1 PACKET PO (08:32)
[2020-04-23] MEDS: TRIAMCINOLONE ACET 0.5% CREAM 15 GM TUBE 1 APPLIC TOPICAL ×3 (13:00→17:30)
[2020-04-23] MEDS: ACIDOPHILUS/BULGARICUS CHEWABLE TABLET 1 TABLET PO (13:24)
[2020-04-23] MEDS: CARBIDOPA 25 MG TABLET PO ×2 (13:59→16:50)
--- NOTE | 2020-04-23 15:10 | WPDNEURORHBP ---
Subjective Date/time seen: 04/23/20 15:10 Interval history: this 84-year-old woman is here primarily because of C5/T1 fracture has cervical collar on and also has had for fracture for will she is having TLSO She is complaining of some itchiness and discomfort under her cervical collar so this examiner with the help of physical therapist putting her head down in the bed looked at it and I did see some redness around the left side of her neck and mild redness at the occipital area however no sign of infection or no skin breakdown I also looked at my own history and physical examination and the screening form prior to her coming to us and clearly mentions that the patient can take cervical car off while she in the bed and this event did and looked at her neck and will do at least once gently to protect her spine and put it back on later on Review of Systems Review of Systems: All systems reviewed & are unremarkable except as noted in HPI and below Functional Status Ambulation Ability Ability to Ambulate 10 Feet: Standby Assistance Ability to Ambulate 50 Feet With 2 Turns: Standby Assistance Ability to Ambulate 150 Feet: Standby Assistance Ambulation Assistive Devices: Walker, Wheeled Transfers Ability Ability to Transfer In/Out of Chair: Standby Assistance Exam Const: General: comfortable and no acute distress HENMT: General nose exam: Normal nares present Mouth: Yes moist mucous membranes Eyes: General: appearance normal, both eyes and all related structures Neck: Neck: supple and no JVD Resp: Effort & Inspection: normal respiratory effort Auscultation: clear to auscultation bilaterally Cardio: Rate: regular rate Rhythm: regular rhythm GI: GI Palp: Yes Soft to palpation Auscultation: normal bowel sounds Skin: Other: this skin behind the cervical collar around the neck shows little redness however no skin tear no sign of infection Neuro: Other: her overall neurological state is improving 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 is also improved she is walking much better and continues to engage in therapy Extrem: General: normal to inspection Psych: Mental Status: mental status grossly normal Objective Data Vital Signs Vital Signs: Vital Signs - 24 hr 04/22/20 19:35 04/22/20 19:43 04/22/20 22:00 Temperature 36.6 C Pulse Rate 118 H 95 88 Respiratory Rate 18 20 16 Blood Pressure 124/96 H Pulse Oximetry 93 94 04/22/20 22:10 04/23/20 01:34 04/23/20 01:37 Temperature Pulse Rate 92 86 66 Respiratory Rate 20 20 Blood Pressure Pulse Oximetry 91 96 04/23/20 06:00 04/23/20 08:22 04/23/20 08:31 Temperature 36.5 C Pulse Rate 100 101 H 100 Respiratory Rate 18 18 Blood Pressure 133/89 Pulse Oximetry 96 94 04/23/20 08:32 Temperature Pulse Rate 96 Respiratory Rate 18 Blood Pressure Pulse Oximetry Intake/Output Intake/Output: Intake & Output 04/20/20 04/21/20 04/22/20 04/23/20 23:59 23:59 23:59 23:59 Intake Total 720 720 720 480 Balance 720 720 720 480 Meds/Results Medications: Active Medications Generic Name Dose Route Start Last Admin Trade Name Freq PRN Reason Stop Dose Admin Acetaminophen 650 mg 04/19/20 03:20 Tylenol Tablet PO Q6H PRN Pain Rated 1-3 Albuterol 2.5 mg 04/23/20 12:32 Albuterol Sulf Neb 2.5mg/0.5ml INHALATION Q6HRT PRN Shortness Of Breath Or Wheezing Apixaban 5 mg 04/19/20 09:00 04/23/20 08:30 Eliquis PO 5 mg BID [facility] Administration Buspirone HCl 10 mg 04/22/20 21:00 04/23/20 13:23 Buspar PO 10 mg 0630,1200,2100 [facility] Administration Calcium Citrate 1 tablet 04/19/20 09:00 04/23/20 08:30 Calcitrate + Vit D Caplet PO 05/19/20 09:01 1 tablet BID [facility] Administration Carbidopa 25 mg 04/22/20 17:00 04/23/20 13:59 Lodosyn PO 25 mg 1200,1700 [facility] Administration Carbidopa 200 mg 04/23/20 06:30 04/23/20 06:28 Lodosyn PO 200 mg DAILY@0630 [facility]
[2020-04-23] MEDS: MIRTAZAPINE 15 MG TABLET PO (21:10)
[2020-04-23] MEDS: MONTELUKAST SODIUM 10 MG TABLET PO (21:14)
[2020-04-24 06:00] VITALS: BP 134/81; PULSE 93; RESP 18; TEMP 37.1; O2SAT 92
[2020-04-24] MEDS: CARBIDOPA 25 MG TABLET 200 MG PO (06:03)
[2020-04-24] MEDS: LEVOTHYROXINE SODIUM 75 MCG TABLET PO (06:04)
[2020-04-24] MEDS: busPIRone HCL 10 MG TABLET PO ×3 (06:05→20:14)
[2020-04-24] MEDS: FUROSEMIDE 20 MG TABLET PO (06:06)
[2020-04-24] MEDS: PANTOPRAZOLE 40 MG TABLET PO (06:06)
[2020-04-24] MEDS: POTASSIUM CHLORIDE 10 MEQ TABLET.ER PO (06:07)
[2020-04-24] MEDS: CARBIDOPA/LEVODOPA 12.5/50 MG TABLET 1 TABLET PO (08:03)
[2020-04-24] MEDS: CARBIDOPA/LEVODOPA 25/100 MG TABLET 2 TABLET PO ×4 (08:03→20:15)
[2020-04-24] MEDS: LIDOCAINE 5% PATCH 1 PATCH TOPICAL (08:54)
[2020-04-24] MEDS: LOTEPREDNOL ETABONATE 0.2% OPH 5 ML SUSP 1 DROP EACH EYE ×4 (08:54→20:29)
[2020-04-24] MEDS: APIXABAN 5 MG TABLET PO ×2 (08:54→17:48)
[2020-04-24] MEDS: GENTAMICIN SULFATE 0.3% OP SOL 5 ML BTL 1 DROP EACH EYE (08:54)
[2020-04-24] MEDS: DULoxetine HCL 60 MG CAPSULE.DR PO (08:54)
[2020-04-24 08:55] VITALS: PULSE 93
[2020-04-24] MEDS: METOPROLOL TARTRATE 50 MG TAB 100 MG PO ×2 (08:55→20:27)
[2020-04-24] MEDS: TRIAMCINOLONE ACET 0.5% CREAM 15 GM TUBE 1 APPLIC TOPICAL ×3 (08:55→17:48)
[2020-04-24] MEDS: polyethylene glycoL 3350 17 GM POWD.PACK PO (08:55)
[2020-04-24] MEDS: PSYLLIUM POWDER PACKET 1 PACKET PO (08:55)
[2020-04-24] MEDS: SENNOSIDES 8.6 MG TABLET 17.2 MG PO (08:55)
[2020-04-24] MEDS: CARBIDOPA 25 MG TABLET PO ×2 (12:32→17:48)
[2020-04-24 14:00] VITALS: BP 120/73; PULSE 54; RESP 20; TEMP 36.7; O2SAT 100
[2020-04-24] MEDS: ACIDOPHILUS/BULGARICUS CHEWABLE TABLET 1 TABLET PO (14:47)
--- NOTE | 2020-04-24 18:49 | WPDNEURORHBP ---
Subjective Date/time seen: 04/24/20 18:49 Interval history: this 84-year-old woman with underlying previous stroke is here because of C5, T1, L4 fracture she has hard cervical collar on and also TLSO she is improving overall denies any headache nausea vomiting chest pain shortness of breath fever chills sore throat Review of Systems Review of Systems: All systems reviewed & are unremarkable except as noted in HPI and below Functional Status Ambulation Ability Ability to Ambulate 10 Feet: Standby Assistance Ability to Ambulate 50 Feet With 2 Turns: Standby Assistance Ability to Ambulate 150 Feet: Standby Assistance Ambulation Assistive Devices: Walker, Wheeled Transfers Ability Ability to Transfer In/Out of Chair: Standby Assistance Exam Const: General: comfortable and no acute distress HENMT: General nose exam: Normal nares present Mouth: Yes moist mucous membranes Eyes: General: appearance normal, both eyes and all related structures Neck: Neck: supple and no JVD Resp: Effort & Inspection: normal respiratory effort Auscultation: clear to auscultation bilaterally Cardio: Rate: regular rate Rhythm: regular rhythm GI: GI Palp: Yes Soft to palpation Auscultation: normal bowel sounds Skin: General skin exam: normal color and no rashes or lesions noted Neuro: Other: patient's aphasia is stable right-sided weakness is stable in fact has improved generalized weakness of both lower upper extremity has improved and she is doing well in the rehab Extrem: General: normal to inspection Psych: Mental Status: mental status grossly normal Objective Data Vital Signs Vital Signs: Vital Signs - 24 hr 04/23/20 21:13 04/23/20 21:55 04/23/20 22:29 Temperature 37.1 C Pulse Rate 84 92 96 Respiratory Rate 18 18 Blood Pressure 141/76 H Pulse Oximetry 95 94 04/24/20 06:00 04/24/20 08:55 04/24/20 14:00 Temperature 37.1 C 36.7 C Pulse Rate 93 93 54 L Respiratory Rate 18 20 Blood Pressure 134/81 120/73 Pulse Oximetry 92 100 Intake/Output Intake/Output: Intake & Output 04/21/20 04/22/20 04/23/20 04/24/20 23:59 23:59 23:59 23:59 Intake Total 720 720 720 720 Balance 720 720 720 720 Meds/Results Medications: Active Medications Generic Name Dose Route Start Last Admin Trade Name Freq PRN Reason Stop Dose Admin Acetaminophen 650 mg 04/19/20 03:20 Tylenol Tablet PO Q6H PRN Pain Rated 1-3 Albuterol 2.5 mg 04/23/20 12:32 Albuterol Sulf Neb 2.5mg/0.5ml INHALATION Q6HRT PRN Shortness Of Breath Or Wheezing Apixaban 5 mg 04/19/20 09:00 04/24/20 17:48 Eliquis PO 5 mg BID [place] Administration Buspirone HCl 10 mg 04/22/20 21:00 04/24/20 12:32 Buspar PO 10 mg 0630,1200,2100 [facility] Administration Calcium Citrate 1 tablet 04/19/20 09:00 04/24/20 17:48 Calcitrate + Vit D Caplet PO 05/19/20 09:01 1 tablet BID [facility] Administration Carbidopa 25 mg 04/22/20 17:00 04/24/20 17:48 Lodosyn PO 25 mg 1200,1700 [facility] Administration Carbidopa 200 mg 04/23/20 06:30 04/24/20 06:03 Lodosyn PO 200 mg DAILY@0630 [facility] Administration Carbidopa/Levodopa 2 tablet 04/19/20 08:00 04/24/20 17:48 Sinemet 25/100 Mg PO 2 tablet 0800,1200,1600,2100 [facility] Administration Carbidopa/Levodopa 1 tablet 04/19/20 08:00 04/24/20 08:03 Sinemet 12.5/50 Mg PO 1 tablet DAILY@0800 [facility] Administration Duloxetine HCl 60 mg 04/19/20 09:00 04/24/20 08:54 Cymbalta PO 60 mg DAILY [facility] Administration Furosemide 20 mg 04/23/20 06:30 04/24/20 06:06 Lasix Tablet PO 20 mg 0630 [facility] Administration Gentamicin Sulfate 1 drop 04/19/20 09:00 04/24/20 08:54 Gentamicin Sulfate 0.3% Op Clarita EACH EYE 1 drop DAILY [facility] Administration Ipratropium [place] 0.5 mg 04/23/20 12:32 Atrovent Neb INHALATION Q6HRT PRN Shortness Of Breath Or Wheezing Lactobacillus Acidophilus 1 tablet 04/23/20 12:00 04/24/20 14:47 Lact
[2020-04-24] MEDS: MIRTAZAPINE 15 MG TABLET PO (20:16)
[2020-04-24] MEDS: MONTELUKAST SODIUM 10 MG TABLET PO (20:16)
[2020-04-24 20:27] VITALS: PULSE 78
[2020-04-24 22:00] VITALS: BP 121/90; PULSE 102; RESP 18; TEMP 35.4; O2SAT 98
[2020-04-25] VITALS (7 sets, daily range): BP systolic 93–123; BP diastolic 65–91; PULSE 75–82; RESP 18; TEMP 35.4–36.5; O2SAT 94–100
[2020-04-25] MEDS: CARBIDOPA 25 MG TABLET 200 MG PO (05:58)
[2020-04-25] MEDS: busPIRone HCL 10 MG TABLET PO ×3 (06:02→21:12)
[2020-04-25] MEDS: FUROSEMIDE 20 MG TABLET PO (06:03)
[2020-04-25] MEDS: PANTOPRAZOLE 40 MG TABLET PO (06:03)
[2020-04-25] MEDS: LEVOTHYROXINE SODIUM 75 MCG TABLET PO (06:03)
[2020-04-25] MEDS: POTASSIUM CHLORIDE 10 MEQ TABLET.ER PO (06:04)
[2020-04-25] MEDS: APIXABAN 5 MG TABLET PO ×2 (08:15→17:31)
[2020-04-25] MEDS: CARBIDOPA/LEVODOPA 12.5/50 MG TABLET 1 TABLET PO (08:15)
[2020-04-25] MEDS: CARBIDOPA/LEVODOPA 25/100 MG TABLET 2 TABLET PO ×4 (08:15→21:11)
[2020-04-25] MEDS: LIDOCAINE 5% PATCH 1 PATCH TOPICAL (08:16)
[2020-04-25] MEDS: DULoxetine HCL 60 MG CAPSULE.DR PO (08:16)
[2020-04-25] MEDS: GENTAMICIN SULFATE 0.3% OP SOL 5 ML BTL 1 DROP EACH EYE (08:16)
[2020-04-25] MEDS: polyethylene glycoL 3350 17 GM POWD.PACK PO (08:17)
[2020-04-25] MEDS: METOPROLOL TARTRATE 50 MG TAB 100 MG PO ×2 (08:17→21:11)
[2020-04-25] MEDS: LOTEPREDNOL ETABONATE 0.2% OPH 5 ML SUSP 1 DROP EACH EYE ×4 (08:17→21:12)
[2020-04-25] MEDS: TRIAMCINOLONE ACET 0.5% CREAM 15 GM TUBE 1 APPLIC TOPICAL ×3 (08:18→17:32)
[2020-04-25] MEDS: PSYLLIUM POWDER PACKET 1 PACKET PO (08:18)
[2020-04-25] MEDS: SENNOSIDES 8.6 MG TABLET 17.2 MG PO (08:18)
--- NOTE | 2020-04-25 08:22 | PCPTNOTE ---
Jennifer Smith was evaluated for a wheeled walker on 04/25/2020 by this physical therapist household personal assistant. The wheeled walker will resolve patient's mobility limitations and will be used for ADL's within the home. The patient can safely use the wheeled walker. ?The wheeled walker will resolve the patient?s mobility deficits, including transfers, gait, and ADL's. Mabel Nunez, [employer]
[2020-04-25] MEDS: CARBIDOPA 25 MG TABLET PO ×2 (13:47→17:31)
[2020-04-25] MEDS: ACIDOPHILUS/BULGARICUS CHEWABLE TABLET 1 TABLET PO (13:48)
[2020-04-25] MEDS: MIRTAZAPINE 15 MG TABLET PO (21:11)
[2020-04-25] MEDS: MONTELUKAST SODIUM 10 MG TABLET PO (21:12)
[2020-04-25] MEDS: DIPHENHYDRAMINE 1%/ZINC 0.1% CREAM 30 GM TUBE 1 APPLIC TOPICAL (21:13)
[2020-04-25] MEDS: ACETAMINOPHEN 325 MG TABLET 650 MG PO (21:25)
[2020-04-26] VITALS (7 sets, daily range): BP systolic 103–123; BP diastolic 64–96; PULSE 54–82; RESP 17–19; TEMP 36–36.4; O2SAT 94–98
[2020-04-26 05:13] LABS: Basophils Absolute Auto 0.1 K/mm3 (0.0-0.1); Basophils Percent Auto 1.7 % (0.2-1.2); Eosinophils Absolute Auto 0.1 K/mm3 (0-0.3); Eosinophils Percent Auto 1.9 % (0-4.4); Hematocrit 47.4 % (37.0-47.0); Hemoglobin 14.9 g/dL (12.0-15.0); Immature Granulocyte Absolute 0.03 K/mm3 (0.00-0.031); Immature Granulocyte Percent A 0.5 % (0-0.5); Lymphocytes Absolute Auto 1.77 K/mm3 (0.9-3.2); Lymphocytes Percent Auto 27.4 % (18.3-44.2); Mean Corpuscular HGB Conc 31.4 g/dl (32-36); Mean Corpuscular Hemoglobin 26.2 pg (26-34); Mean Corpuscular Volume 83.5 fl (80-100); Mean Platelet Volume 11.3 fl (7.4-10.4); Monocytes Absolute Auto 0.7 K/mm3 (0.1-0.6); Monocytes Percent Auto 10.5 % (2.6-8.5); Neutrophils Absolute Auto 3.7 K/mm3 (1.3-6.7); Platelet Count Result 230 k/mm3 (150-375); Red Blood Count 5.68 M/mm3 (4.2-5.4); Red Cell Distribution Width 18.6 % (11.5-14.5); White Blood Count 6.5 K/mm3 (4.5-10.0)
[2020-04-26 05:29] LABS: Blood Urea Nitrogen 19 mg/dL (7-17); Calcium 9.2 mg/dL (8.4-10.2); Carbon Dioxide 29 mmol/L (22-30); Chloride 102 mmol/L (98-107); Estimated CRCL calculation 39 ml/min; Estimated Glomerular Filt Rate 60; Glucose 89 mg/dL (65-105); Potassium 3.9 mmol/L (3.4-5.0); Sodium 137 mmol/L (137-145)
[2020-04-26] MEDS: busPIRone HCL 10 MG TABLET PO ×3 (06:24→21:06)
[2020-04-26] MEDS: POTASSIUM CHLORIDE 10 MEQ TABLET.ER PO (06:25)
[2020-04-26] MEDS: FUROSEMIDE 20 MG TABLET PO (06:25)
[2020-04-26] MEDS: CARBIDOPA 25 MG TABLET 200 MG PO (06:26)
[2020-04-26] MEDS: PANTOPRAZOLE 40 MG TABLET PO (06:27)
[2020-04-26] MEDS: LEVOTHYROXINE SODIUM 88 MCG TABLET PO (06:27)
[2020-04-26] MEDS: CARBIDOPA/LEVODOPA 25/100 MG TABLET 2 TABLET PO ×4 (09:09→21:06)
[2020-04-26] MEDS: CARBIDOPA/LEVODOPA 12.5/50 MG TABLET 1 TABLET PO (09:09)
[2020-04-26] MEDS: APIXABAN 5 MG TABLET PO ×2 (09:10→17:49)
[2020-04-26] MEDS: LOTEPREDNOL ETABONATE 0.2% OPH 5 ML SUSP 1 DROP EACH EYE ×4 (09:10→21:07)
[2020-04-26] MEDS: METOPROLOL TARTRATE 50 MG TAB 100 MG PO ×2 (09:10→21:09)
[2020-04-26] MEDS: LIDOCAINE 5% PATCH 1 PATCH TOPICAL (09:10)
[2020-04-26] MEDS: GENTAMICIN SULFATE 0.3% OP SOL 5 ML BTL 1 DROP EACH EYE (09:10)
[2020-04-26] MEDS: TRIAMCINOLONE ACET 0.5% CREAM 15 GM TUBE 1 APPLIC TOPICAL ×3 (09:11→17:50)
[2020-04-26] MEDS: DULoxetine HCL 60 MG CAPSULE.DR PO (09:11)
[2020-04-26] MEDS: PSYLLIUM POWDER PACKET 1 PACKET PO (09:11)
[2020-04-26] MEDS: SENNOSIDES 8.6 MG TABLET 17.2 MG PO (09:11)
[2020-04-26] MEDS: polyethylene glycoL 3350 17 GM POWD.PACK PO (09:11)
--- NOTE | 2020-04-26 11:22 | WPDNEURORHBP ---
Subjective Date/time seen: 04/26/20 11:22 Interval history: this 84-year-old woman is here because of multiple fractures primarily concerning is the C5-T1 and L4 fracture for the C5 in T1 she has a hard cervical collar and for the L4 fracture she has a TLSO. The patient has done well she has underlying Parkinson's disease which is stable which has been discussed with the daughter so many times and was discussed today in the team conference The patient denies any headache nausea vomiting chest pain shortness of breath fever chills sore throat She used to live in the assisted living facility however in my personal opinion the patient will not be a a candidate for the assisted living she will need the intermediate facility at least for the short term till she sees the neurosurgeon who has been conservatively treating her for the C5 anti 1 fracture Review of Systems Review of Systems: All systems reviewed & are unremarkable except as noted in HPI and below Functional Status Ambulation Ability Ability to Ambulate 10 Feet: Standby Assistance Ability to Ambulate 50 Feet With 2 Turns: Standby Assistance Ability to Ambulate 150 Feet: Standby Assistance Ambulation Assistive Devices: Walker, Wheeled Transfers Ability Ability to Transfer In/Out of Chair: Standby Assistance Exam Const: General: comfortable and no acute distress HENMT: General nose exam: Normal nares present Mouth: Yes moist mucous membranes Eyes: General: appearance normal, both eyes and all related structures Neck: Neck: supple and no JVD Resp: Effort & Inspection: normal respiratory effort Auscultation: clear to auscultation bilaterally Cardio: Rate: regular rate Rhythm: regular rhythm GI: GI Palp: Yes Soft to palpation Auscultation: normal bowel sounds Skin: General skin exam: normal color and no rashes or lesions noted Neuro: Other: the patient remains awake alert oriented of course she has expressive aphasia mostly from the previous stroke a few years ago however overall she has improved significantly was she has been here walking quite a bit Extrem: General: normal to inspection Psych: Mental Status: mental status grossly normal Objective Data Vital Signs Vital Signs: Vital Signs - 24 hr 04/25/20 14:00 04/25/20 20:14 04/25/20 21:11 Temperature 36.5 C Pulse Rate 82 80 Respiratory Rate 18 Blood Pressure 93/65 L Pulse Oximetry 100 94 04/25/20 21:50 04/25/20 22:00 04/26/20 01:33 Temperature 36.4 C Pulse Rate 82 80 Respiratory Rate 18 Blood Pressure 120/84 Pulse Oximetry 94 98 94 04/26/20 06:00 04/26/20 09:10 Temperature 36.4 C Pulse Rate 58 L 58 L Respiratory Rate 17 Blood Pressure 123/96 H Pulse Oximetry 97 Intake/Output Intake/Output: Intake & Output 04/23/20 04/24/20 04/25/20 04/26/20 23:59 23:59 23:59 23:59 Intake Total 720 720 960 240 Balance 720 720 960 240 Meds/Results Medications: Active Medications Generic Name Dose Route Start Last Admin Trade Name Freq PRN Reason Stop Dose Admin Acetaminophen 650 mg 04/19/20 03:20 04/25/20 21:25 Tylenol Tablet PO 650 mg Q6H PRN Administration Pain Rated 1-3 Albuterol 2.5 mg 04/23/20 12:32 Albuterol Sulf Neb 2.5mg/0.5ml INHALATION Q6HRT PRN Shortness Of Breath Or Wheezing Apixaban 5 mg 04/19/20 09:00 04/26/20 09:10 Eliquis PO 5 mg BID [facility] Administration Buspirone HCl 10 mg 04/22/20 21:00 04/26/20 06:24 Buspar PO 10 mg 0630,1200,2100 [facility] Administration Calcium Citrate 1 tablet 04/19/20 09:00 04/26/20 09:11 Calcitrate + Vit D Caplet PO 05/19/20 09:01 1 tablet BID [facility] Administration Carbidopa 25 mg 04/22/20 17:00 04/25/20 17:31 Lodosyn PO 25 mg 1200,1700 [facility] Administration Carbidopa 200 mg 04/23/20 06:30 04/26/20 06:26 Lodosyn PO 200 mg DAILY@0630 [facility] Administration Carbidopa/Levodopa 2 tablet 04/19/20 08:00 04/26/20 09:09 Sinemet 25/100 Mg PO 2 t
[2020-04-26] MEDS: ACIDOPHILUS/BULGARICUS CHEWABLE TABLET 1 TABLET PO (12:48)
[2020-04-26] MEDS: CARBIDOPA 25 MG TABLET PO ×2 (12:49→17:50)
[2020-04-26] MEDS: MONTELUKAST SODIUM 10 MG TABLET PO (21:07)
[2020-04-26] MEDS: MIRTAZAPINE 15 MG TABLET PO (21:09)
[2020-04-27] VITALS (8 sets, daily range): BP systolic 124–131; BP diastolic 72–82; PULSE 58–104; RESP 16–20; TEMP 36.6–36.9; O2SAT 94–100
[2020-04-27] MEDS: LEVOTHYROXINE SODIUM 75 MCG TABLET PO (05:59)
[2020-04-27] MEDS: FUROSEMIDE 20 MG TABLET PO (05:59)
[2020-04-27] MEDS: CARBIDOPA 25 MG TABLET 200 MG PO (05:59)
[2020-04-27] MEDS: busPIRone HCL 10 MG TABLET PO ×3 (06:02→20:39)
[2020-04-27] MEDS: POTASSIUM CHLORIDE 10 MEQ TABLET.ER PO (06:04)
[2020-04-27] MEDS: PANTOPRAZOLE 40 MG TABLET PO (06:04)
[2020-04-27] MEDS: polyethylene glycoL 3350 17 GM POWD.PACK PO (09:39)
[2020-04-27] MEDS: SENNOSIDES 8.6 MG TABLET 17.2 MG PO (09:39)
[2020-04-27] MEDS: LIDOCAINE 5% PATCH 1 PATCH TOPICAL (09:39)
[2020-04-27] MEDS: PSYLLIUM POWDER PACKET 1 PACKET PO (09:39)
[2020-04-27] MEDS: METOPROLOL TARTRATE 50 MG TAB 100 MG PO ×2 (09:40→20:37)
[2020-04-27] MEDS: CARBIDOPA/LEVODOPA 25/100 MG TABLET 2 TABLET PO ×4 (09:40→20:37)
[2020-04-27] MEDS: CARBIDOPA/LEVODOPA 12.5/50 MG TABLET 1 TABLET PO (09:41)
[2020-04-27] MEDS: DULoxetine HCL 60 MG CAPSULE.DR PO (09:41)
[2020-04-27] MEDS: APIXABAN 5 MG TABLET PO ×2 (09:41→18:02)
[2020-04-27] MEDS: TRIAMCINOLONE ACET 0.5% CREAM 15 GM TUBE 1 APPLIC TOPICAL ×3 (09:42→18:02)
[2020-04-27] MEDS: LOTEPREDNOL ETABONATE 0.2% OPH 5 ML SUSP 1 DROP EACH EYE ×4 (09:42→20:36)
[2020-04-27] MEDS: GENTAMICIN SULFATE 0.3% OP SOL 5 ML BTL 1 DROP EACH EYE (09:42)
--- NOTE | 2020-04-27 11:20 | PCDIET ---
Nutrition Follow-Up Complete: Nutrition Diagnosis: Predicted suboptimal oral intake related to fracture as evidenced by intake of 30% x 1. Nutrition Goal: Patient to consume 50% of meals and supplements Goal met. Patient consuming 100% of most meals on regular diet. Recommend stopping Ensure Compact due to adequate intake. Last recorded weight is 74.3 kg. Recommend obtaining new weight. Bowel Motility: +BM reported today. Labs Reviewed: 04/26/20 labs noted. Meds Noted: Albuterol, Calcium Citrate, Carbidopa, Sinemet, Lasix, Atrovent, Lactinex, Remeron, Metamucil, Senna, Protonix, Miralax, KCl Additional Notes: No documented skin breakdown. Will continue to monitor with same goal. Nutrition Monitoring and Evaluation: Follow up in 7 days.
[2020-04-27] MEDS: CARBIDOPA 25 MG TABLET PO ×2 (14:57→18:01)
[2020-04-27] MEDS: ACIDOPHILUS/BULGARICUS CHEWABLE TABLET 1 TABLET PO (14:57)
--- NOTE | 2020-04-27 15:36 | WPDNEURORHBP ---
Subjective Date/time seen: 04/27/20 15:36 Interval history: this 84-year-old woman is here because of the C5 and T1 fracture for which she is in a hard cervical collar she also has fracture down the spine for which she uses the TLSO Her daughter who happened to be a nurse was asking about the shower and the the information we have that she can take shower Oswald this is on and we can removed pad and once we find out we will be able to give her shower and the pad inside the hard cervical collar can needing removed or a new 1 put in Patient otherwise is stable and doing fairly well walking the rehab of course with a walker and has no change in her neurological status or otherwise in fact overall her weakness and everything has improved Review of Systems Review of Systems: All systems reviewed & are unremarkable except as noted in HPI and below Functional Status Ambulation Ability Ability to Ambulate 10 Feet: Independent Ability to Ambulate 50 Feet With 2 Turns: Independent Ability to Ambulate 150 Feet: Independent Ambulation Assistive Devices: Walker, Wheeled Transfers Ability Ability to Transfer In/Out of Chair: Independent Exam Const: General: comfortable and no acute distress HENMT: General nose exam: Normal nares present Mouth: Yes moist mucous membranes Eyes: General: appearance normal, both eyes and all related structures Neck: Neck: supple and no JVD Other: she has hard cervical aspen call Resp: Effort & Inspection: normal respiratory effort Auscultation: clear to auscultation bilaterally Cardio: Rate: regular rate Rhythm: regular rhythm GI: GI Palp: Yes Soft to palpation Auscultation: normal bowel sounds Skin: General skin exam: normal color and no rashes or lesions noted Neuro: Other: patient's aphasia and right-sided hemiparesis has improved here which is from the old stroke she had her strength is improving she is able to walk fairly decent all feet and the help of the walker Extrem: General: normal to inspection Psych: Mental Status: mental status grossly normal Objective Data Vital Signs Vital Signs: Vital Signs - 24 hr 04/26/20 21:09 04/26/20 22:00 04/26/20 23:09 Temperature 36.0 C L Pulse Rate 82 54 L Respiratory Rate 19 Blood Pressure 116/87 Pulse Oximetry 98 95 04/27/20 06:00 04/27/20 09:40 04/27/20 14:00 Temperature 36.6 C 36.9 C Pulse Rate 99 96 104 H Respiratory Rate 19 20 Blood Pressure 124/82 124/72 Pulse Oximetry 100 99 Intake/Output Intake/Output: Intake & Output 04/24/20 04/25/20 04/26/20 04/27/20 23:59 23:59 23:59 23:59 Intake Total 720 960 780 480 Balance 720 960 780 480 Meds/Results Medications: Active Medications Generic Name Dose Route Start Last Admin Trade Name Emani PRN Reason Stop Dose Admin Acetaminophen 650 mg 04/19/20 03:20 04/25/20 21:25 Tylenol Tablet PO 650 mg Q6H PRN Administration Pain Rated 1-3 Albuterol 2.5 mg 04/23/20 12:32 Albuterol Sulf Neb 2.5mg/0.5ml INHALATION Q6HRT PRN Shortness Of Breath Or Wheezing Apixaban 5 mg 04/19/20 09:00 04/27/20 09:41 Eliquis PO 5 mg BID [facility] Administration Buspirone HCl 10 mg 04/22/20 21:00 04/27/20 14:57 Buspar PO 10 mg 0630,1200,2100 [facility] Administration Calcium Citrate 1 tablet 04/19/20 09:00 04/27/20 09:41 Calcitrate + Vit D Caplet PO 05/19/20 09:01 1 tablet BID [facility] Administration Carbidopa 25 mg 04/22/20 17:00 04/27/20 14:57 Lodosyn PO 25 mg 1200,1700 [facility] Administration Carbidopa 200 mg 04/23/20 06:30 04/27/20 05:59 Lodosyn PO 200 mg DAILY@0630 [facility] Administration Carbidopa/Levodopa 2 tablet 04/19/20 08:00 04/27/20 14:58 Sinemet 25/100 Mg PO 2 tablet 0800,1200,1600,2100 [facility] Administration Carbidopa/Levodopa 1 tablet 04/19/20 08:00 04/27/20 09:41 Sinemet 12.5/50 Mg PO 1 tablet DAILY@0800 [facility] Administration Duloxetine HCl 60 mg 04/19/20 09:00 04/27/20 09:41 Cymbalta
[2020-04-27] MEDS: MONTELUKAST SODIUM 10 MG TABLET PO (20:38)
[2020-04-27] MEDS: MIRTAZAPINE 15 MG TABLET PO (20:39)
[2020-04-28] VITALS (7 sets, daily range): BP systolic 105–139; BP diastolic 65–84; PULSE 60–80; RESP 16–20; TEMP 36.3–36.7; O2SAT 93–100
[2020-04-28] MEDS: CARBIDOPA 25 MG TABLET 200 MG PO (05:49)
[2020-04-28] MEDS: busPIRone HCL 10 MG TABLET PO ×3 (05:49→20:23)
[2020-04-28] MEDS: POTASSIUM CHLORIDE 10 MEQ TABLET.ER PO (05:50)
[2020-04-28] MEDS: FUROSEMIDE 20 MG TABLET PO (05:50)
[2020-04-28] MEDS: PANTOPRAZOLE 40 MG TABLET PO (05:50)
[2020-04-28] MEDS: LEVOTHYROXINE SODIUM 88 MCG TABLET PO (05:53)
[2020-04-28] MEDS: METOPROLOL TARTRATE 50 MG TAB 100 MG PO ×2 (08:32→20:21)
[2020-04-28] MEDS: LIDOCAINE 5% PATCH 1 PATCH TOPICAL (08:32)
[2020-04-28] MEDS: PSYLLIUM POWDER PACKET 1 PACKET PO (08:32)
[2020-04-28] MEDS: CARBIDOPA/LEVODOPA 25/100 MG TABLET 2 TABLET PO ×4 (08:32→20:23)
[2020-04-28] MEDS: polyethylene glycoL 3350 17 GM POWD.PACK PO (08:33)
[2020-04-28] MEDS: CARBIDOPA/LEVODOPA 12.5/50 MG TABLET 1 TABLET PO (08:33)
[2020-04-28] MEDS: DULoxetine HCL 60 MG CAPSULE.DR PO (08:33)
[2020-04-28] MEDS: APIXABAN 5 MG TABLET PO ×2 (08:33→17:20)
[2020-04-28] MEDS: GENTAMICIN SULFATE 0.3% OP SOL 5 ML BTL 1 DROP EACH EYE (08:33)
[2020-04-28] MEDS: LOTEPREDNOL ETABONATE 0.2% OPH 5 ML SUSP 1 DROP EACH EYE ×4 (08:33→20:23)
[2020-04-28] MEDS: SENNOSIDES 8.6 MG TABLET 17.2 MG PO (08:34)
[2020-04-28] MEDS: TRIAMCINOLONE ACET 0.5% CREAM 15 GM TUBE 1 APPLIC TOPICAL ×3 (08:34→17:21)
--- NOTE | 2020-04-28 12:19 | WPDNEURORHBP ---
Subjective Date/time seen: 04/28/20 12:19 Interval history: this 84-year-old is here with the C5-T1 L4 fractures with the underlying Parkinson's disease she has done well here and will be discharged on April 29, 2020 to a nursing home facility overall status is stable she is wearing the hard cervical collar and also TLSO instruction have been given to the patient also discussed with the daughter The patient denies any headache nausea vomiting chest pain shortness of breath fever chills sore throat Review of Systems Review of Systems: All systems reviewed & are unremarkable except as noted in HPI and below Functional Status Ambulation Ability Ability to Ambulate 10 Feet: Standby Assistance Ability to Ambulate 50 Feet With 2 Turns: Independent Ability to Ambulate 150 Feet: Independent Ambulation Assistive Devices: Walker, Wheeled Transfers Ability Ability to Transfer In/Out of Chair: Independent Exam Const: General: comfortable and no acute distress HENMT: General nose exam: Normal nares present Mouth: Yes moist mucous membranes Eyes: General: appearance normal, both eyes and all related structures Neck: Neck: supple and no JVD Other: wearing hard cervical collar no issues with rash or anything in the neck Resp: Effort & Inspection: normal respiratory effort Auscultation: clear to auscultation bilaterally Cardio: Rate: regular rate Rhythm: regular rhythm GI: GI Palp: Yes Soft to palpation Auscultation: normal bowel sounds Skin: General skin exam: normal color and no rashes or lesions noted Neuro: Other: patient is awake alert well oriented 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 which is in fact improved also the weakness is improved she is why walking quite a bit however still needs the assistance with cervical collar and also has to use the walker to prevent fall Extrem: General: normal to inspection Psych: Mental Status: mental status grossly normal Objective Data Vital Signs Vital Signs: Vital Signs - 24 hr 04/28/20 14:00 04/28/20 20:21 04/28/20 21:25 Temperature 36.6 C Pulse Rate 75 80 72 Respiratory Rate 20 Blood Pressure 105/84 Pulse Oximetry 95 93 04/28/20 21:26 04/28/20 21:45 04/29/20 06:00 Temperature 36.3 C L 36.2 C L Pulse Rate 80 73 Respiratory Rate 16 16 Blood Pressure 119/65 144/99 H Pulse Oximetry 93 99 100 04/29/20 07:45 Temperature Pulse Rate 73 Respiratory Rate Blood Pressure Pulse Oximetry Intake/Output Intake/Output: Intake & Output 04/26/20 04/27/20 04/28/20 04/29/20 23:59 23:59 23:59 23:59 Intake Total 780 960 960 360 Balance 780 960 960 360 Meds/Results Medications: Active Medications Generic Name Dose Route Start Last Admin Trade Name Freq PRN Reason Stop Dose Admin Acetaminophen 650 mg 04/19/20 03:20 04/25/20 21:25 Tylenol Tablet PO 650 mg Q6H PRN Administration Pain Rated 1-3 Albuterol 2.5 mg 04/23/20 12:32 Albuterol Sulf Neb 2.5mg/0.5ml INHALATION Q6HRT PRN Shortness Of Breath Or Wheezing Apixaban 5 mg 04/19/20 09:00 04/29/20 07:46 Eliquis PO 5 mg BID [facility] Administration Buspirone HCl 10 mg 04/22/20 21:00 04/29/20 11:43 Buspar PO 10 mg 0630,1200,2100 [facility] Administration Calcium Citrate 1 tablet 04/19/20 09:00 04/29/20 07:45 Calcitrate + Vit D Caplet PO 05/19/20 09:01 1 tablet BID [facility] Administration Carbidopa 25 mg 04/22/20 17:00 04/29/20 11:43 Lodosyn PO 25 mg 1200,1700 [facility] Administration Carbidopa 200 mg 04/23/20 06:30 04/29/20 06:21 Lodosyn PO 200 mg DAILY@0630 [facility] Administration Carbidopa/Levodopa 2 tablet 04/19/20 08:00 04/29/20 11:44 Sinemet 25/100 Mg PO 2 tablet 0800,1200,1600,2100 [facility] Administration Carbidopa/Levodopa 1 tablet 04/19/20 08:00 04/29/20 07:45 Sinemet 12.5/50 Mg PO 1 tablet DAILY@0800 [facility] Administration Duloxetine HCl 60 mg 04/19/20 09:00 04/29/20 07:4
[2020-04-28] MEDS: ACIDOPHILUS/BULGARICUS CHEWABLE TABLET 1 TABLET PO (12:44)
[2020-04-28 13:59] LABS: SARS-CoV-2 RNA PCR Negative
[2020-04-28] MEDS: CARBIDOPA 25 MG TABLET PO ×2 (14:09→17:20)
--- NOTE | 2020-04-28 14:10 | PC.NURSE ---
carbidopa and buspar due at noon not available in drawer. requested from pharmacy.
[2020-04-28] MEDS: MONTELUKAST SODIUM 10 MG TABLET PO (20:21)
[2020-04-28] MEDS: MIRTAZAPINE 15 MG TABLET PO (20:23)
[2020-04-29 06:00] VITALS: BP 144/99; PULSE 73; RESP 16; TEMP 36.2; O2SAT 100
[2020-04-29] MEDS: FUROSEMIDE 20 MG TABLET PO (06:20)
[2020-04-29] MEDS: PANTOPRAZOLE 40 MG TABLET PO (06:20)
[2020-04-29] MEDS: busPIRone HCL 10 MG TABLET PO ×2 (06:21→11:43)
[2020-04-29] MEDS: POTASSIUM CHLORIDE 10 MEQ TABLET.ER PO (06:21)
[2020-04-29] MEDS: CARBIDOPA 25 MG TABLET 200 MG PO (06:21)
[2020-04-29] MEDS: LEVOTHYROXINE SODIUM 75 MCG TABLET PO (06:21)
[2020-04-29] MEDS: polyethylene glycoL 3350 17 GM POWD.PACK PO (07:44)
[2020-04-29] MEDS: GENTAMICIN SULFATE 0.3% OP SOL 5 ML BTL 1 DROP EACH EYE (07:44)
[2020-04-29] MEDS: LIDOCAINE 5% PATCH 1 PATCH TOPICAL (07:44)
[2020-04-29] MEDS: SENNOSIDES 8.6 MG TABLET 17.2 MG PO (07:44)
[2020-04-29] MEDS: LOTEPREDNOL ETABONATE 0.2% OPH 5 ML SUSP 1 DROP EACH EYE (07:44)
[2020-04-29 07:45] VITALS: PULSE 73
[2020-04-29] MEDS: CARBIDOPA/LEVODOPA 25/100 MG TABLET 2 TABLET PO ×2 (07:45→11:44)
[2020-04-29] MEDS: DULoxetine HCL 60 MG CAPSULE.DR PO (07:45)
[2020-04-29] MEDS: METOPROLOL TARTRATE 50 MG TAB 100 MG PO (07:45)
[2020-04-29] MEDS: CARBIDOPA/LEVODOPA 12.5/50 MG TABLET 1 TABLET PO (07:45)
[2020-04-29] MEDS: TRIAMCINOLONE ACET 0.5% CREAM 15 GM TUBE 1 APPLIC TOPICAL (07:46)
[2020-04-29] MEDS: APIXABAN 5 MG TABLET PO (07:46)
[2020-04-29] MEDS: PSYLLIUM POWDER PACKET 1 PACKET PO (08:56)
[2020-04-29] MEDS: ACIDOPHILUS/BULGARICUS CHEWABLE TABLET 1 TABLET PO (11:43)
[2020-04-29] MEDS: CARBIDOPA 25 MG TABLET PO (11:43)
--- NOTE | 2020-04-29 12:22 | WPDNEURORHBP ---
Subjective Date/time seen: 04/29/20 12:22 Interval history: the patient is here for the multiple fracture in her spine she has done well and ready to be discharged today to the [facility] facility the patient has been appraised and destruction have been given to her and also her daughter She has no unusual symptoms and in fact has gotten much better since she has been on the rehab Review of Systems Review of Systems: All systems reviewed & are unremarkable except as noted in HPI and below Functional Status Ambulation Ability Ability to Ambulate 10 Feet: Standby Assistance Ability to Ambulate 50 Feet With 2 Turns: Independent Ability to Ambulate 150 Feet: Independent Ambulation Assistive Devices: Walker, Wheeled Transfers Ability Ability to Transfer In/Out of Chair: Independent Exam Const: General: comfortable and no acute distress HENMT: General nose exam: Normal nares present Mouth: Yes moist mucous membranes Eyes: General: appearance normal, both eyes and all related structures Neck: Neck: supple and no JVD Resp: Effort & Inspection: normal respiratory effort Auscultation: clear to auscultation bilaterally Cardio: Rate: regular rate Rhythm: regular rhythm GI: GI Palp: Yes Soft to palpation Auscultation: normal bowel sounds Skin: General skin exam: normal color and no rashes or lesions noted Neuro: Other: patient is awake and alert well oriented time place and person is follows all commands her neurological status has significantly improved Extrem: General: normal to inspection Psych: Mental Status: mental status grossly normal Objective Data Vital Signs Vital Signs: Vital Signs - 24 hr 04/28/20 14:00 04/28/20 20:21 04/28/20 21:25 Temperature 36.6 C Pulse Rate 75 80 72 Respiratory Rate 20 Blood Pressure 105/84 Pulse Oximetry 95 93 04/28/20 21:26 04/28/20 21:45 04/29/20 06:00 Temperature 36.3 C L 36.2 C L Pulse Rate 80 73 Respiratory Rate 16 16 Blood Pressure 119/65 144/99 H Pulse Oximetry 93 99 100 04/29/20 07:45 Temperature Pulse Rate 73 Respiratory Rate Blood Pressure Pulse Oximetry Intake/Output Intake/Output: Intake & Output 04/26/20 04/27/20 04/28/20 04/29/20 23:59 23:59 23:59 23:59 Intake Total 780 960 960 360 Balance 780 960 960 360 Meds/Results Medications: Active Medications Generic Name Dose Route Start Last Admin Trade Name Emani PRN Reason Stop Dose Admin Acetaminophen 650 mg 04/19/20 03:20 04/25/20 21:25 Tylenol Tablet PO 650 mg Q6H PRN Administration Pain Rated 1-3 Albuterol 2.5 mg 04/23/20 12:32 Albuterol Sulf Neb 2.5mg/0.5ml INHALATION Q6HRT PRN Shortness Of Breath Or Wheezing Apixaban 5 mg 04/19/20 09:00 04/29/20 07:46 Eliquis PO 5 mg BID [facility] Administration Buspirone HCl 10 mg 04/22/20 21:00 04/29/20 11:43 Buspar PO 10 mg 0630,1200,2100 [facility] Administration Calcium Citrate 1 tablet 04/19/20 09:00 04/29/20 07:45 Calcitrate + Vit D Caplet PO 05/19/20 09:01 1 tablet BID [facility] Administration Carbidopa 25 mg 04/22/20 17:00 04/29/20 11:43 Lodosyn PO 25 mg 1200,1700 [facility] Administration Carbidopa 200 mg 04/23/20 06:30 04/29/20 06:21 Lodosyn PO 200 mg DAILY@0630 [facility] Administration Carbidopa/Levodopa 2 tablet 04/19/20 08:00 04/29/20 11:44 Sinemet 25/100 Mg PO 2 tablet 0800,1200,1600,2100 [facility] Administration Carbidopa/Levodopa 1 tablet 04/19/20 08:00 04/29/20 07:45 Sinemet 12.5/50 Mg PO 1 tablet DAILY@0800 [facility] Administration Duloxetine HCl 60 mg 04/19/20 09:00 04/29/20 07:45 Cymbalta PO 60 mg DAILY [facility] Administration Furosemide 20 mg 04/23/20 06:30 04/29/20 06:20 Lasix Tablet PO 20 mg 0630 [facility] Administration Ipratropium [place] 0.5 mg 04/23/20 12:32 Atrovent Neb INHALATION Q6HRT PRN Shortness Of Breath Or Wheezing Lactobacillus Acidophilus 1 tablet 04/23/20 12:00 04/29/20 11:43
--- NOTE | 2020-05-04 15:07 | PM.DS ---
DS: Admitting Diagnosis Admitting Diagnosis Admitting Diagnosis: Unspecified nondisplaced fracture of fifth cervical vertebra, initial encounter for closed fracture DS: Discharge Diagnosis Discharge Diagnosis (1) Dysphasia: Code(s): R47.02 - Dysphasia Status: Acute (2) Encephalomalacia: Code(s): G93.89 - Other specified disorders of brain Status: Acute (3) Atrial fibrillation: Code(s): I48.91 - Unspecified atrial fibrillation Status: Acute (4) Subdural hygroma: Code(s): G96.0 - Cerebrospinal fluid leak Status: Acute (5) Parkinsons disease: Code(s): G20 - Parkinson's disease Status: Acute (6) Falls: Code(s): W19.XXXA - Unspecified fall, initial encounter Status: Acute (7) Compression fracture of L4 vertebra: Code(s): S32.040A - Wedge compression fracture of fourth lumbar vertebra, initial encounter for closed fracture Status: Acute (8) T1 vertebral fracture: Code(s): S22.019A - Unspecified fracture of first thoracic vertebra, initial encounter for closed fracture Status: Acute (9) C5 cervical fracture: Code(s): S12.400A - Unspecified displaced fracture of fifth cervical vertebra, initial encounter for closed fracture Status: Acute DS: Summary Hospital Course Reason for hospitalization: this 84-year-old was admitted to our acute rehab with multiple diagnosis as mentioned above she received the physical therapy occupational therapy and gait training and treatment for Parkinson's disease and was able to achieved the following independent measures Hospital Course: eating independent oral hygiene independent toileting independent bathing partial assistance upper body dressing substantial lower body dressing supervision foot where partial assistance rolling in bed independent sitting to lying independent lying to sitting supervision sit to stand independent chair transfers independent car transfers walking 10 feet walking 50 feet walking 150 feet walking 10 feet uneven surfaces [place] step a 4 steps 12 steps all independent picking object independent wheelchair not applicable the patient was transferred to [facility] facility Time Spent with Patient Time attestation: Total time spent providing and/or coordinating discharge services: Exam Const: General: comfortable and no acute distress HENMT: General nose exam: Normal nares present Mouth: Yes dry mucous membranes Eyes: General: appearance normal, both eyes and all related structures Neck: Neck: supple and no JVD Other: wearing cervical cord Resp: Auscultation: clear to auscultation bilaterally Cardio: Rate: regular rate Rhythm: regular rhythm GI: GI Palp: Yes Soft to palpation Auscultation: normal bowel sounds Neuro: Other: patient was awake alert with mild short-term memory deficit overall significant improvement in her physical status considering the multiple fractures she has had and stable Parkinson's disease Extrem: General: normal to inspection Psych: Mental Status: mental status grossly normal Discharge Plan Discharge Attending physician on discharge: Pablo Dumont Discharging Clinician: Pablo Dumont Anticipated Discharge Date/Time: 04/29/20 13:43 Patient Disposition: SNF Activity: may shower, as tolerated and other - see discharge instructions Diet: as tolerated and regular Discharge Instructions: Please wear cervical collar at all times. You have an extra set of pads so you can change them out after showering. Please wear TLSO brace when up for comfort. You may remove this to shower. Do NOT bend over if you do not have the brace on. Patient Instructions: Apixaban (By mouth), Heart Failure (GEN), Pain Management in Older Adults (GEN) Stand Alone Forms: General Discharge Information Follow-up/Referrals: Fabian Baptiste [Other] (Appointment May 1:30 PM,with x-rays) [facility] [Other] (Foll
== END 2020-04-29 14:10 | DRG 560 ==
PROVIDERS: Admitting Provider Psychiatry & Neurology Neurology; PCP Family Medicine; Visit Provider Psychiatry & Neurology Neurology
DX: S12.401D Unspecified nondisplaced fracture of fifth cervical vertebra, subsequent encounter for fracture with routine healing (principal); G96.0 Cerebrospinal fluid leak; I69.351 Hemiplegia and hemiparesis following cerebral infarction affecting right dominant side; S22.010D Wedge compression fracture of first thoracic vertebra, subsequent encounter for fracture with routine healing; S36.039D Unspecified laceration of spleen, subsequent encounter; S32.040D Wedge compression fracture of fourth lumbar vertebra, subsequent encounter for fracture with routine healing; I69.320 Aphasia following cerebral infarction; E03.9 Hypothyroidism, unspecified; F41.9 Anxiety disorder, unspecified; G20 Parkinson's disease; G24.5 Blepharospasm; G93.89 Other specified disorders of brain; I48.91 Unspecified atrial fibrillation; I10 Essential (primary) hypertension; J61 Pneumoconiosis due to asbestos and other mineral fibers; M25.572 Pain in left ankle and joints of left foot; M19.90 Unspecified osteoarthritis, unspecified site; Z95.0 Presence of cardiac pacemaker; Z79.01 Long term (current) use of anticoagulants; Z11.59 Encounter for screening for other viral diseases; W19.XXXD Unspecified fall, subsequent encounter
CPT/HCPCS: 36415; 73610; 80048; 85025; 87635; 92507; 92523; 94640; 97110; 97116; 97129; 97130; 97162; 97166; 97530; 97535; A9270; C9803; L0140; U0003